=== PATIENT | male | born 1950 | race Caucasian/White ===

== ENCOUNTER 2023-08-09 07:02 | Day surgery (SDC) | payer MEDICARE ==
[~2023-08-09] VITALS: Ht 182.9 cm; Wt 88.5 kg
[2023-08-09] VITALS (12 sets, daily range): BP systolic 102–132; BP diastolic 69–96; PULSE 50–74; RESP 10–19; TEMP 97.5; O2SAT 94–100
[2023-08-09 08:01] LABS: BASOPHILS # (AUTO) 0.1 X10'3 (0-0.2); BASOPHILS % (AUTO) 1.2 % (0-1); EOSINOPHILS # (AUTO) 0.1 X10'3 (0-0.9); EOSINOPHILS % (AUTO) 1.2 % (0-6); HEMATOCRIT 47.5 % (42.0-52.0); LYMPHOCYTES # (AUTO) 1.7 X10'3 (1.1-4.8); LYMPHOCYTES % (AUTO) 29.2 % (21-51); MEAN CORPUSCULAR HEMOGLOBIN 31.7 PG (27.0-31.0); MEAN CORPUSCULAR HGB CONC 33.7 g/dL (33.0-36.5); MEAN PLATELET VOLUME 7.6 FL (7.4-10.4); MONOCYTES # (AUTO) 0.6 X10'3 (0-0.9); MONOCYTES % (AUTO) 9.6 % (2-12); NEUTROPHILS # (AUTO) 3.4 X10'3 (1.8-7.7); NEUTROPHILS % (AUTO) 58.8 % (42-75); PLATELET COUNT 194 X10'3 (140-440); RED BLOOD COUNT 5.05 X10'6 (4.70-6.10); WHITE BLOOD COUNT 5.8 X10'3 (4.5-11.0)
[2023-08-09] MEDS ORDERED: CARCD120C PO (08:07)
[2023-08-09] MEDS ORDERED: APIX5TAB3 PO (08:07)
[2023-08-09] MEDS ORDERED: FLEC100T35 PO (08:07)
[2023-08-09 08:13] LABS: INR 1.1 INR; PROTHROMBIN TIME 12.2 SECONDS (9.0-12.0)
[2023-08-09] MEDS: normal saline 1000ml 1,000 ML IV SCH (08:35)
[2023-08-09] MEDS: fentaNYL/PF 50MCG/1 ML 2ML syringe IV ONE (09:30)
[2023-08-09] MEDS: MIDAZolam 1mg/ml 10ml vial IV ONE (09:30)
== END 2023-08-09 10:30 | disposition home or self-care (01) ==
LOC: SSTAY O 07:02
PROVIDERS: ATTEND Internal Medicine Cardiovascular Disease
DX: I48.19 Other persistent atrial fibrillation (principal); I45.10 Unspecified right bundle-branch block; G47.33 Obstructive sleep apnea (adult) (pediatric); Z79.01 Long term (current) use of anticoagulants; Z79.899 Other long term (current) drug therapy; Z98.890 Other specified postprocedural states
CPT/HCPCS: 36415; 85025; 85610; 92960; 93005; J2250; J3010; J7030; A4620